=== PATIENT | male | born 1960 | race African-American/Black ===

== ENCOUNTER 2019-05-16 09:42 | Outpatient (CLI) | payer OTHER ==
--- NOTE | 2019-05-16 10:12 | RAD ---
EXAM: Two views chest PROVIDED CLINICAL HISTORY: Cough for 5 months. COMPARISON: 06/18/2016 FINDINGS: Cardiac silhouette and pulmonary vasculature are within normal limits. The lungs are clear. The osse ous structures have a normal appearance. IMPRESSION: No acute cardiopulmonary process.
--- NOTE | 2019-05-16 10:21 | ULT ---
ABDOMINAL ULTRASOUND HISTORY: Immunocompromised. FINDINGS: Liver: Within normal limits. Gallbladder: No gallbladder calculi are visualized. There is no gallbladder wall thickening or perich olecystic fluid. Common duct: Common duct is normal in caliber measuring 20 mm in diameter. Pancreas: The limited visualized pancreas demonstrates a normal sonographic appearance. IVC: Limited visualized IVC has a normal sonographic appearance. Aorta: Mild atherosclerotic plaque. Spleen: Nonspecific slight heterogeneity. Kidneys: Kidneys demonstrate a normal sonographic appearance bilaterally with the right kidney measur ing 10.8 cm in length, and the left kidney measures 11.5 cm in length. IMPRESSION: 1. No gallbladder calculi are seen, and the common duct is normal in caliber. 2. Slight nonspecific heterogeneity of the spleen.
== END 2019-05-16 09:43 | disposition home or self-care (01) ==
LOC: SCSULT 09:42
PROVIDERS: ATTEND Internal Medicine Infectious Disease
DX: B20 Human immunodeficiency virus [HIV] disease (principal); M89.40 Other hypertrophic osteoarthropathy, unspecified site
CPT/HCPCS: 71046; 93975

== ENCOUNTER 2021-07-03 02:04 | Inpatient (IN) | payer OTHER ==
[2021-07-03 03:31] LABS: #Lymphocytes 1.3 thou/uL (1.20-3.40); #Monocytes 0.2 thou/uL (0.11-0.59); #Neutrophils 1.1 thou/uL (1.40-6.50); %Basophils 1.5 % (0.0-1.0); %Eosinophils 1.7 % (0.0-10.0); %Lymphocytes 48.4 % (21.0-51.0); %Monocytes 8.6 % (0.0-10.0); %Neutrophils 39.8 % (42.0-75.0); Hemoglobin 13.7 g/dL (14.0-18.0); Mean Corpuscular HGB CONC 33.6 g/dL (32.0-36.0); Mean Corpuscular Hemoglobin 31.4 pg (27.0-31.0); Mean Corpuscular Volume 93.6 fL (78.0-98.0); Mean Platelet Volume 8.8 fL (7.4-10.4); Platelet Count 132 thou/uL (130-400); RBC Distribution Width 11.9 % (11.5-14.5); Red Blood Cell (RBC) Count 4.36 mill/uL (4.70-6.10); White Blood Cell (WBC) Count 2.7 thou/uL (4.8-10.8)
[2021-07-03 03:52] LABS: ALT (SGPT) 18 U/L (8-55); AST (SGOT) 24 U/L (5-34); Albumin 3.9 g/dL (3.5-5.0); Alkaline Phosphatase 75 U/L (40-110); Anion Gap 13 mmol/L (10-20); BUN (Urea Nitrogen) 15 mg/dL (8.4-25.7); Bilirubin, Total 0.3 mg/dL (0.2-1.2); Calc. Creatinine Clearance 0 mL/min (70-130); Calcium 9.2 mg/dL (7.8-10.44); Carbon Dioxide 20 mmol/L (22-29); Chloride 107 mmol/L (98-107); Globulin 4.2 g/dL (2.4-3.5); Glucose 90 mg/dL (70-105); Protein, Total 8.1 g/dL (6.0-8.3); Sodium 136 mmol/L (136-145)
[2021-07-03] MEDS ORDERED: cloNIDine 0.1 MG TAB ONE (03:58)
[2021-07-03 06:03] VITALS: BMI 20.4
[2021-07-03] MEDS ORDERED: Ondansetron PF 4 MG/2 ML Vial IVP PRN (08:12)
[2021-07-03] MEDS ORDERED: Acetaminophen 650 MG Suppository PR PRN (08:12)
[2021-07-03] MEDS ORDERED: Bisacodyl 5 MG TAB PO PRN (08:12)
[2021-07-03] MEDS ORDERED: Acetaminophen 325 MG TAB PO PRN (08:12)
[2021-07-03] MEDS ORDERED: hydrALAZINE 20 MG/ML VIAL SLOW IVP PRN (08:12)
[2021-07-03] MEDS ORDERED: Senokot S 8.6-50 MG TAB PO PRN (08:12)
[2021-07-03] MEDS ORDERED: Ondansetron ODT 4 MG TAB PO PRN (08:12)
[2021-07-03] MEDS ORDERED: Prevnar 13-Val Conj/PF 0.5 ML SYRINGE IM ONE (09:00)
[2021-07-03] MEDS ORDERED: Amlodipine 5 MG TAB PO SCH (09:00)
[2021-07-03] MEDS ORDERED: FLU VACC QS2021-22(6MOS UP)/PF 60 MCG/0.5 ML SYRINGE IM ONE (09:00)
[2021-07-03 15:52] LABS: Amphetamine Not Detected (NotDetected); Barbiturates Screen Not Detected (NotDetected); Benzodiazepine Screen Not Detected (NotDetected); Cocaine Metabolite Screen Not Detected (NotDetected); Methadone Not Detected (NotDetected); Methamphetamine Not Detected (NotDetected); Opiate Screen Not Detected (NotDetected); Oxycodone Screen Not Detected (NotDetected); Phencyclidine (PCP) Not Detected (NotDetected); THC/Cannabinoid Screen Detected (NotDetected); Tricyclic Screen Not Detected (NotDetected)
[2021-07-03] MEDS ORDERED: Aspirin 325 mg Enteric Coated Tablet PO SCH (16:45)
[2021-07-03 16:46] LABS: SARS-CoV-2 PCR by NAA DETECTED (NotDetected)
[2021-07-03] MEDS: Atorvastatin Calcium 40 MG TAB PO SCH (22:58)
[2021-07-04 05:53] LABS: #Eosinphils 0.1 thou/uL (0.0-0.7); #Lymphocytes 1.3 thou/uL (1.20-3.40); #Monocytes 0.2 thou/uL (0.11-0.59); %Basophils 0.4 % (0.0-1.0); %Eosinophils 2.8 % (0.0-10.0); %Lymphocytes 48.7 % (21.0-51.0); %Monocytes 9.3 % (0.0-10.0); %Neutrophils 38.8 % (42.0-75.0); Hemoglobin 13.7 g/dL (14.0-18.0); Mean Corpuscular HGB CONC 33.7 g/dL (32.0-36.0); Mean Corpuscular Hemoglobin 31.5 pg (27.0-31.0); Mean Corpuscular Volume 93.5 fL (78.0-98.0); Platelet Count 130 thou/uL (130-400); RBC Distribution Width 11.8 % (11.5-14.5); Red Blood Cell (RBC) Count 4.34 mill/uL (4.70-6.10); White Blood Cell (WBC) Count 2.6 thou/uL (4.8-10.8)
[2021-07-04 06:10] LABS: Anion Gap 14 mmol/L (10-20); BUN (Urea Nitrogen) 10 mg/dL (8.4-25.7); Calc. Creatinine Clearance 65 mL/min (70-130); Calcium 9.1 mg/dL (7.8-10.44); Carbon Dioxide 19 mmol/L (22-29); Cardiac Risk 4.7 (Less than 4.5); Chloride 106 mmol/L (98-107); Cholesterol 184 mg/dl (< 200 Desired); Glucose 99 mg/dL (70-105); HDL Cholesterol 39 mg/dL (>60 Neg Risk); LDL Cholesterol, Calculated 123 mg/dL; Potassium 3.9 mmol/L (3.5-5.1); Sodium 135 mmol/L (136-145); Triglycerides 110 mg/dL (Less than 150)
[2021-07-04] MEDS: Aspirin 81 mg Enteric Coated Tablet PO SCH (08:03)
[2021-07-04] MEDS: Atorvastatin Calcium 40 MG TAB PO SCH (20:15)
[2021-07-05 07:54] LABS: #Eosinphils 0.1 thou/uL (0.0-0.7); #Lymphocytes 1.3 thou/uL (1.20-3.40); #Monocytes 0.4 thou/uL (0.11-0.59); #Neutrophils 1.7 thou/uL (1.40-6.50); %Basophils 0.9 % (0.0-1.0); %Eosinophils 1.5 % (0.0-10.0); %Lymphocytes 37.4 % (21.0-51.0); %Monocytes 10.5 % (0.0-10.0); %Neutrophils 49.7 % (42.0-75.0); Hemoglobin 14.2 g/dL (14.0-18.0); Mean Corpuscular HGB CONC 32.8 g/dL (32.0-36.0); Mean Corpuscular Hemoglobin 30.7 pg (27.0-31.0); Mean Corpuscular Volume 93.7 fL (78.0-98.0); Mean Platelet Volume 8.8 fL (7.4-10.4); Platelet Count 143 thou/uL (130-400); RBC Distribution Width 11.8 % (11.5-14.5); Red Blood Cell (RBC) Count 4.64 mill/uL (4.70-6.10); White Blood Cell (WBC) Count 3.4 thou/uL (4.8-10.8)
[2021-07-05 08:08] LABS: Anion Gap 12 mmol/L (10-20); BUN (Urea Nitrogen) 10 mg/dL (8.4-25.7); Calc. Creatinine Clearance 61 mL/min (70-130); Calcium 9.4 mg/dL (7.8-10.44); Carbon Dioxide 21 mmol/L (22-29); Chloride 105 mmol/L (98-107); Glucose 93 mg/dL (70-105); Sodium 134 mmol/L (136-145)
[2021-07-05] MEDS: Aspirin 81 mg Enteric Coated Tablet PO SCH (08:39)
[2021-07-05] MEDS ORDERED: DOVATO PO SCH (09:00)
[2021-07-05] MEDS ORDERED: Amlodipine 5 MG TAB PO SCH (13:00)
[2021-07-05] MEDS: Atorvastatin Calcium 40 MG TAB PO SCH (20:09)
[2021-07-06 06:00] LABS: #Eosinphils 0.1 thou/uL (0.0-0.7); #Lymphocytes 1.4 thou/uL (1.20-3.40); #Monocytes 0.4 thou/uL (0.11-0.59); #Neutrophils 1.4 thou/uL (1.40-6.50); %Eosinophils 1.7 % (0.0-10.0); %Lymphocytes 43.3 % (21.0-51.0); %Monocytes 12.7 % (0.0-10.0); %Neutrophils 42.2 % (42.0-75.0); Hemoglobin 14.2 g/dL (14.0-18.0); Mean Corpuscular HGB CONC 33.7 g/dL (32.0-36.0); Mean Corpuscular Hemoglobin 31.6 pg (27.0-31.0); Mean Corpuscular Volume 93.9 fL (78.0-98.0); Mean Platelet Volume 8.5 fL (7.4-10.4); Platelet Count 136 thou/uL (130-400); RBC Distribution Width 11.8 % (11.5-14.5); White Blood Cell (WBC) Count 3.3 thou/uL (4.8-10.8)
[2021-07-06 06:20] LABS: Anion Gap 14 mmol/L (10-20); BUN (Urea Nitrogen) 12 mg/dL (8.4-25.7); Calc. Creatinine Clearance 56 mL/min (70-130); Calcium 9.2 mg/dL (7.8-10.44); Carbon Dioxide 21 mmol/L (22-29); Chloride 104 mmol/L (98-107); Glucose 99 mg/dL (70-105); Sodium 135 mmol/L (136-145)
[2021-07-06] MEDS: Aspirin 81 mg Enteric Coated Tablet PO SCH (08:19)
[2021-07-06] MEDS ORDERED: Amlodipine 5 MG TAB PO SCH (09:00)
[2021-07-06] MEDS: Atorvastatin Calcium 40 MG TAB PO SCH (21:08)
[2021-07-07 05:37] LABS: #Eosinphils 0.1 thou/uL (0.0-0.7); #Lymphocytes 1.2 thou/uL (1.20-3.40); #Monocytes 0.3 thou/uL (0.11-0.59); #Neutrophils 1.5 thou/uL (1.40-6.50); %Eosinophils 2.8 % (0.0-10.0); %Lymphocytes 38.6 % (21.0-51.0); %Monocytes 10.8 % (0.0-10.0); %Neutrophils 47.8 % (42.0-75.0); Hemoglobin 14.4 g/dL (14.0-18.0); Mean Corpuscular HGB CONC 33.4 g/dL (32.0-36.0); Mean Corpuscular Hemoglobin 31.2 pg (27.0-31.0); Mean Corpuscular Volume 93.4 fL (78.0-98.0); Mean Platelet Volume 8.5 fL (7.4-10.4); Platelet Count 149 thou/uL (130-400); RBC Distribution Width 11.7 % (11.5-14.5); Red Blood Cell (RBC) Count 4.61 mill/uL (4.70-6.10); White Blood Cell (WBC) Count 3.2 thou/uL (4.8-10.8)
[2021-07-07 06:02] LABS: Anion Gap 14 mmol/L (10-20); BUN (Urea Nitrogen) 14 mg/dL (8.4-25.7); Calc. Creatinine Clearance 61 mL/min (70-130); Calcium 9.1 mg/dL (7.8-10.44); Carbon Dioxide 19 mmol/L (22-29); Chloride 107 mmol/L (98-107); Glucose 93 mg/dL (70-105); Sodium 136 mmol/L (136-145)
[2021-07-07] MEDS: Aspirin 81 mg Enteric Coated Tablet PO SCH (08:13)
[2021-07-07] MEDS: Amlodipine 10 MG TAB PO SCH (08:13)
[2021-07-07] MEDS ORDERED: Docusate 100 MG CAP PO PRN (11:00)
[2021-07-07] MEDS: Atorvastatin Calcium 40 MG TAB PO SCH (20:24)
[2021-07-07] MEDS: Docusate 100 MG CAP PO SCH (20:24)
[2021-07-08 06:17] LABS: #Eosinphils 0.2 thou/uL (0.0-0.7); #Lymphocytes 1.3 thou/uL (1.20-3.40); #Monocytes 0.3 thou/uL (0.11-0.59); #Neutrophils 1.3 thou/uL (1.40-6.50); %Basophils 0.3 % (0.0-1.0); %Eosinophils 5.2 % (0.0-10.0); %Monocytes 8.2 % (0.0-10.0); %Neutrophils 43.3 % (42.0-75.0); Hemoglobin 14.3 g/dL (14.0-18.0); Mean Corpuscular HGB CONC 33.4 g/dL (32.0-36.0); Mean Corpuscular Hemoglobin 31.2 pg (27.0-31.0); Mean Corpuscular Volume 93.4 fL (78.0-98.0); Mean Platelet Volume 8.7 fL (7.4-10.4); Platelet Count 157 thou/uL (130-400); RBC Distribution Width 11.7 % (11.5-14.5); Red Blood Cell (RBC) Count 4.57 mill/uL (4.70-6.10)
[2021-07-08 06:42] LABS: Anion Gap 13 mmol/L (10-20); BUN (Urea Nitrogen) 11 mg/dL (8.4-25.7); Calc. Creatinine Clearance 65 mL/min (70-130); Calcium 9.5 mg/dL (7.8-10.44); Carbon Dioxide 19 mmol/L (22-29); Chloride 107 mmol/L (98-107); Glucose 90 mg/dL (70-105); Sodium 135 mmol/L (136-145)
[2021-07-08] MEDS: Amlodipine 10 MG TAB PO SCH (08:24)
[2021-07-08] MEDS: Docusate 100 MG CAP PO SCH ×2 (08:24→22:01)
[2021-07-08] MEDS: Aspirin 81 mg Enteric Coated Tablet PO SCH (08:24)
[2021-07-08] MEDS: Lisinopril/Hydrochlorothiazide 10 mg/12.5 mg Tablet PO SCH (18:48)
[2021-07-08] MEDS: Atorvastatin Calcium 40 MG TAB PO SCH (22:05)
[2021-07-09] MEDS: Amlodipine 10 MG TAB PO SCH (08:31)
[2021-07-09] MEDS: Aspirin 81 mg Enteric Coated Tablet PO SCH (08:33)
[2021-07-09] MEDS: Lisinopril/Hydrochlorothiazide 10 mg/12.5 mg Tablet PO SCH (17:15)
[2021-07-09] MEDS: Atorvastatin Calcium 40 MG TAB PO SCH (20:46)
[2021-07-10] MEDS: Amlodipine 10 MG TAB PO SCH (09:00)
[2021-07-10] MEDS: Aspirin 81 mg Enteric Coated Tablet PO SCH (09:00)
[2021-07-10] MEDS: Lisinopril/Hydrochlorothiazide 10 mg/12.5 mg Tablet PO SCH (18:17)
[2021-07-10] MEDS: Atorvastatin Calcium 40 MG TAB PO SCH (20:20)
[2021-07-11] MEDS: Aspirin 81 mg Enteric Coated Tablet PO SCH (08:56)
[2021-07-11] MEDS: Amlodipine 10 MG TAB PO SCH (08:59)
[2021-07-11] MEDS: Lisinopril/Hydrochlorothiazide 10 mg/12.5 mg Tablet PO SCH (18:31)
[2021-07-11] MEDS: Atorvastatin Calcium 40 MG TAB PO SCH (20:20)
[2021-07-12] MEDS ORDERED: Enoxaparin Sodium 40 MG/0.4 ML SYRINGE SC SCH (09:00)
[2021-07-12] MEDS: Amlodipine 10 MG TAB PO SCH (09:51)
[2021-07-12] MEDS: Aspirin 81 mg Enteric Coated Tablet PO SCH (09:51)
[2021-07-12 15:48] VITALS: BP 129/69; TEMP 98.9
== END 2021-07-12 17:12 | DRG 64 ==
LOC: ERS 02:04 → NEURO 04:15 → OBSVTOIN 16:43 → 2SW 23:45
PROVIDERS: ADMIT Internal Medicine; ATTEND Internal Medicine
PROC: 8E0ZXY6 Isolation (ICD-10-PCS; principal; 2021-07-03)
DX: I63.512 Cerebral infarction due to unspecified occlusion or stenosis of left middle cerebral artery (principal); U07.1 COVID-19; J12.82 Pneumonia due to coronavirus disease 2019; E78.5 Hyperlipidemia, unspecified; I10 Essential (primary) hypertension; Z21 Asymptomatic human immunodeficiency virus [HIV] infection status; R47.01 Aphasia; F32.A Depression, unspecified; F17.210 Nicotine dependence, cigarettes, uncomplicated; F14.10 Cocaine abuse, uncomplicated; K59.00 Constipation, unspecified; R00.1 Bradycardia, unspecified; J45.20 Mild intermittent asthma, uncomplicated; Z79.82 Long term (current) use of aspirin; Z79.899 Other long term (current) drug therapy; Z91.14 Patient's other noncompliance with medication regimen; Z71.6 Tobacco abuse counseling; Z71.51 Drug abuse counseling and surveillance of drug abuser
CPT/HCPCS: 36415; 70450; 70551; 71045; 80048; 80053; 80061; 80306; 84443; 84484; 85025; 90471; 90686; 93005; 93306; 93880; G0008; G0378; J1650; U0003; U0005

== ENCOUNTER 2021-07-21 15:03 | Inpatient (IN) | payer OTHER ==
[2021-07-21 16:40] LABS: #Lymphocytes 0.9 thou/uL (1.20-3.40); #Monocytes 0.5 thou/uL (0.11-0.59); #Neutrophils 3.4 thou/uL (1.40-6.50); %Basophils 0.3 % (0.0-1.0); %Eosinophils 0.5 % (0.0-10.0); %Lymphocytes 19.3 % (21.0-51.0); %Monocytes 10.5 % (0.0-10.0); %Neutrophils 69.4 % (42.0-75.0); Hemoglobin 12.3 g/dL (14.0-18.0); Mean Corpuscular HGB CONC 34.1 g/dL (32.0-36.0); Mean Corpuscular Hemoglobin 31.5 pg (27.0-31.0); Mean Corpuscular Volume 92.6 fL (78.0-98.0); Mean Platelet Volume 9.3 fL (7.4-10.4); Platelet Count 159 thou/uL (130-400); RBC Distribution Width 11.1 % (11.5-14.5); Red Blood Cell (RBC) Count 3.91 mill/uL (4.70-6.10); White Blood Cell (WBC) Count 4.9 thou/uL (4.8-10.8)
[2021-07-21 16:55] LABS: INR-International Normal Ratio 1.1; Prothrombin Time 14.4 sec (12.0-14.7)
[2021-07-21 16:56] LABS: PTT 47.4 sec (22.9-36.1)
[2021-07-21 17:00] LABS: ALT (SGPT) 46 U/L (8-55); AST (SGOT) 48 U/L (5-34); Albumin 3.7 g/dL (3.5-5.0); Alkaline Phosphatase 67 U/L (40-110); Anion Gap 15 mmol/L (10-20); BUN (Urea Nitrogen) 39 mg/dL (8.4-25.7); Bilirubin, Total 0.4 mg/dL (0.2-1.2); Calc. Creatinine Clearance 0 mL/min (70-130); Calcium 8.7 mg/dL (7.8-10.44); Carbon Dioxide 20 mmol/L (22-29); Chloride 94 mmol/L (98-107); Globulin 3.6 g/dL (2.4-3.5); Glucose 108 mg/dL (70-105); Potassium 4.3 mmol/L (3.5-5.1); Protein, Total 7.3 g/dL (6.0-8.3); Sodium 125 mmol/L (136-145)
[2021-07-21] MEDS ORDERED: Aspirin 300 MG Suppository ONE (17:16)
[2021-07-21 19:03] LABS: Troponin I 0.029 ng/mL (< 0.028)
[2021-07-21] MEDS ORDERED: Ondansetron ODT 4 MG TAB PO PRN (19:15)
[2021-07-21] MEDS ORDERED: Acetaminophen 650 MG Suppository PR PRN (19:15)
[2021-07-21] MEDS ORDERED: Ondansetron PF 4 MG/2 ML Vial IVP PRN (19:15)
[2021-07-21] MEDS ORDERED: hydrALAZINE 20 MG/ML VIAL SLOW IVP PRN (19:33)
[2021-07-21] MEDS: Sodium Chloride 0.9% 1,000 ML IV SCH (21:20)
[2021-07-21 22:31] LABS: Magnesium 2.5 mg/dL (1.6-2.6)
[2021-07-21 22:36] LABS: Troponin I 0.026 ng/mL (< 0.028)
[2021-07-21 22:48] LABS: Bacteria/HPF None Seen HPF (None Seen); Bilirubin Negative (Negative); Blood, Urine Negative (Negative); Clarity Clear (Clear); Glucose, Urine (Dipstick) Normal (Negative); Ketone, Urine Negative (Negative); Leukocyte Negative Leu/uL (Negative); Nitrite Negative (Negative); Protein, Urine (Dipstick) Negative (Neg-Trace); RBC/HPF 0-3 HPF (0-3); Squamous Epithelial None Seen HPF (0-3); Urobilinogen Normal mg/dL (Less than 2); WBC/HPF 0-3 HPF (0-3); pH, Urine 5.5 (5.0-9.0)
[2021-07-21 22:54] LABS: Amphetamine Not Detected (NotDetected); Barbiturates Screen Not Detected (NotDetected); Benzodiazepine Screen Not Detected (NotDetected); Cocaine Metabolite Screen Not Detected (NotDetected); Methadone Not Detected (NotDetected); Methamphetamine Not Detected (NotDetected); Opiate Screen Not Detected (NotDetected); Oxycodone Screen Not Detected (NotDetected); Phencyclidine (PCP) Not Detected (NotDetected); THC/Cannabinoid Screen Detected (NotDetected); Tricyclic Screen Not Detected (NotDetected)
[2021-07-22 04:57] LABS: #Eosinphils 0.1 thou/uL (0.0-0.7); #Lymphocytes 0.9 thou/uL (1.20-3.40); #Monocytes 0.5 thou/uL (0.11-0.59); %Basophils 0.1 % (0.0-1.0); %Eosinophils 1.6 % (0.0-10.0); %Monocytes 13.6 % (0.0-10.0); %Neutrophils 58.8 % (42.0-75.0); Hemoglobin 11.9 g/dL (14.0-18.0); Mean Corpuscular HGB CONC 33.2 g/dL (32.0-36.0); Mean Corpuscular Hemoglobin 30.9 pg (27.0-31.0); Mean Corpuscular Volume 92.9 fL (78.0-98.0); Platelet Count 152 thou/uL (130-400); RBC Distribution Width 11.1 % (11.5-14.5); Red Blood Cell (RBC) Count 3.86 mill/uL (4.70-6.10); White Blood Cell (WBC) Count 3.5 thou/uL (4.8-10.8)
[2021-07-22 05:23] LABS: Anion Gap 12 mmol/L (10-20); BUN (Urea Nitrogen) 32 mg/dL (8.4-25.7); Calc. Creatinine Clearance 52 mL/min (70-130); Calcium 9.2 mg/dL (7.8-10.44); Carbon Dioxide 20 mmol/L (22-29); Chloride 103 mmol/L (98-107); Glucose 94 mg/dL (70-105); Potassium 4.2 mmol/L (3.5-5.1); Sodium 131 mmol/L (136-145)
[2021-07-22] MEDS ORDERED: Aspirin 300 MG Suppository PR SCH (09:00)
[2021-07-22] MEDS ORDERED: Prevnar 13-Val Conj/PF 0.5 ML SYRINGE IM ONE (09:00)
[2021-07-22] MEDS ORDERED: FLU VACC QS2021-22(6MOS UP)/PF 60 MCG/0.5 ML SYRINGE IM ONE (09:00)
[2021-07-22 10:51] LABS: SARS-CoV-2 PCR by NAA Not Detected (NotDetected)
[2021-07-22] MEDS ORDERED: hydrALAZINE 20 MG/ML VIAL SLOW IVP PRN (12:37)
[2021-07-22] MEDS: Clopidogrel Bisulfate 75 MG TAB PO SCH (13:40)
[2021-07-22] MEDS ORDERED: Aspirin 81 mg Enteric Coated Tablet PO SCH (14:00)
[2021-07-22 15:42] LABS: Anion Gap 14 mmol/L (10-20); BUN (Urea Nitrogen) 22 mg/dL (8.4-25.7); Calc. Creatinine Clearance 60 mL/min (70-130); Calcium 9.3 mg/dL (7.8-10.44); Carbon Dioxide 18 mmol/L (22-29); Chloride 103 mmol/L (98-107); Glucose 127 mg/dL (70-105); Potassium 4.3 mmol/L (3.5-5.1); Sodium 131 mmol/L (136-145)
[2021-07-22] MEDS: Atorvastatin Calcium 40 MG TAB PO SCH (20:15)
[2021-07-22] MEDS ORDERED: Pantoprazole 40 MG VIAL IVP SCH (21:00)
[2021-07-23 04:14] LABS: Creatinine, Urine 123.52 mg/dL (63-166)
[2021-07-23] MEDS ORDERED: Acetaminophen 325 MG TAB PO PRN (05:17)
[2021-07-23 06:24] LABS: #Eosinphils 0.1 thou/uL (0.0-0.7); #Lymphocytes 1.2 thou/uL (1.20-3.40); #Monocytes 0.6 thou/uL (0.11-0.59); #Neutrophils 2.4 thou/uL (1.40-6.50); %Basophils 0.6 % (0.0-1.0); %Eosinophils 2.1 % (0.0-10.0); %Lymphocytes 27.7 % (21.0-51.0); %Monocytes 13.7 % (0.0-10.0); Hemoglobin 12.2 g/dL (14.0-18.0); Mean Corpuscular HGB CONC 34.8 g/dL (32.0-36.0); Mean Corpuscular Hemoglobin 32.5 pg (27.0-31.0); Mean Corpuscular Volume 93.4 fL (78.0-98.0); Mean Platelet Volume 8.9 fL (7.4-10.4); Platelet Count 141 thou/uL (130-400); RBC Distribution Width 11.1 % (11.5-14.5); Red Blood Cell (RBC) Count 3.74 mill/uL (4.70-6.10); White Blood Cell (WBC) Count 4.3 thou/uL (4.8-10.8)
[2021-07-23 06:31] LABS: Anion Gap 14 mmol/L (10-20); BUN (Urea Nitrogen) 18 mg/dL (8.4-25.7); Calc. Creatinine Clearance 60 mL/min (70-130); Carbon Dioxide 20 mmol/L (22-29); Chloride 102 mmol/L (98-107); Glucose 90 mg/dL (70-105); Potassium 4.5 mmol/L (3.5-5.1); Sodium 131 mmol/L (136-145)
[2021-07-23] MEDS: Sodium Chloride 0.9% 1,000 ML IV SCH (08:13)
[2021-07-23] MEDS ORDERED: LAMIVUDINE PO SCH (09:00)
[2021-07-23] MEDS ORDERED: DOLUTEGRAVIR SODIUM PO SCH (09:00)
[2021-07-23] MEDS: Clopidogrel Bisulfate 75 MG TAB PO SCH (09:17)
[2021-07-23] MEDS: Aspirin 81 mg Enteric Coated Tablet PO SCH (09:17)
[2021-07-23] MEDS: Atorvastatin Calcium 40 MG TAB PO SCH (20:01)
[2021-07-23] MEDS: Raltegravir Potassium 400 MG TAB PO SCH (20:01)
[2021-07-24 05:17] LABS: #Eosinphils 0.1 thou/uL (0.0-0.7); #Lymphocytes 1.2 thou/uL (1.20-3.40); #Monocytes 0.5 thou/uL (0.11-0.59); #Neutrophils 2.3 thou/uL (1.40-6.50); %Basophils 0.5 % (0.0-1.0); %Eosinophils 1.6 % (0.0-10.0); %Lymphocytes 28.4 % (21.0-51.0); %Monocytes 12.8 % (0.0-10.0); %Neutrophils 56.7 % (42.0-75.0); Hemoglobin 11.7 g/dL (14.0-18.0); Mean Corpuscular HGB CONC 33.7 g/dL (32.0-36.0); Mean Corpuscular Volume 92.1 fL (78.0-98.0); Mean Platelet Volume 8.5 fL (7.4-10.4); Platelet Count 139 thou/uL (130-400); Red Blood Cell (RBC) Count 3.77 mill/uL (4.70-6.10); White Blood Cell (WBC) Count 4.1 thou/uL (4.8-10.8)
[2021-07-24 05:39] LABS: Anion Gap 14 mmol/L (10-20); BUN (Urea Nitrogen) 16 mg/dL (8.4-25.7); Calc. Creatinine Clearance 56 mL/min (70-130); Calcium 9.1 mg/dL (7.8-10.44); Carbon Dioxide 18 mmol/L (22-29); Chloride 100 mmol/L (98-107); Glucose 89 mg/dL (70-105); Potassium 4.1 mmol/L (3.5-5.1); Sodium 128 mmol/L (136-145)
[2021-07-24] MEDS: Clopidogrel Bisulfate 75 MG TAB PO SCH (09:20)
[2021-07-24] MEDS: Raltegravir Potassium 400 MG TAB PO SCH ×2 (09:21→20:06)
[2021-07-24] MEDS: Aspirin 81 mg Enteric Coated Tablet PO SCH (09:21)
[2021-07-24] MEDS: Emtricitabine/Tenofovir 200-300 MG TAB PO SCH (09:21)
[2021-07-24 10:41] VITALS: BMI 19.5
[2021-07-24] MEDS ORDERED: Tolvaptan 15 MG TAB PO SCH (11:00)
[2021-07-24] MEDS ORDERED: TOLVAPTAN 30 MG TAB PO SCH (12:00)
[2021-07-24 18:24] LABS: Potassium 3.9 mmol/L (3.5-5.1)
[2021-07-24] MEDS: Atorvastatin Calcium 40 MG TAB PO SCH (20:06)
[2021-07-25 04:46] LABS: Anion Gap 14 mmol/L (10-20); BUN (Urea Nitrogen) 18 mg/dL (8.4-25.7); Calc. Creatinine Clearance 63 mL/min (70-130); Calcium 9.1 mg/dL (7.8-10.44); Carbon Dioxide 20 mmol/L (22-29); Chloride 104 mmol/L (98-107); Glucose 102 mg/dL (70-105); Potassium 4.1 mmol/L (3.5-5.1); Sodium 134 mmol/L (136-145)
[2021-07-25 08:45] VITALS: TEMP 97.8
[2021-07-25] MEDS: Aspirin 81 mg Enteric Coated Tablet PO SCH (09:46)
[2021-07-25] MEDS: Emtricitabine/Tenofovir 200-300 MG TAB PO SCH (09:46)
[2021-07-25] MEDS: Raltegravir Potassium 400 MG TAB PO SCH (09:46)
[2021-07-25] MEDS: Clopidogrel Bisulfate 75 MG TAB PO SCH (09:47)
[2021-07-25 11:56] VITALS: BP 118/60
== END 2021-07-25 13:37 | DRG 643 ==
LOC: ERS 15:03 → ERHOLD 18:03 → 2NO 22:06
PROVIDERS: ADMIT Internal Medicine; ATTEND Family Medicine
DX: E22.2 Syndrome of inappropriate secretion of antidiuretic hormone (principal); G93.41 Metabolic encephalopathy; N17.9 Acute kidney failure, unspecified; Z20.822 Contact with and (suspected) exposure to COVID-19; I10 Essential (primary) hypertension; R13.10 Dysphagia, unspecified; Z21 Asymptomatic human immunodeficiency virus [HIV] infection status; F17.210 Nicotine dependence, cigarettes, uncomplicated; F14.10 Cocaine abuse, uncomplicated; E78.5 Hyperlipidemia, unspecified; G93.89 Other specified disorders of brain; Z91.14 Patient's other noncompliance with medication regimen; I69.391 Dysphagia following cerebral infarction; I69.320 Aphasia following cerebral infarction; Z79.82 Long term (current) use of aspirin; Z79.899 Other long term (current) drug therapy
CPT/HCPCS: 36415; 70450; 70496; 70498; 70551; 71045; 80048; 80053; 80306; 81001; 82533; 82570; 83735; 83930; 83935; 84300; 84443; 84484; 85025; 85610; 85730; 93005; 95712; 95819; 95957; J7050; U0003; U0005

== ENCOUNTER 2021-09-25 12:51 | Outpatient (CLI) | payer OTHER ==
[2021-09-25 22:16] LABS: SARS-CoV-2 PCR by NAA Not Detected (NotDetected)
== END 2021-09-25 12:52 | disposition home or self-care (01) ==
LOC: LABBT 12:51
PROVIDERS: ATTEND Family Medicine
DX: Z20.822 Contact with and (suspected) exposure to COVID-19 (principal)
CPT/HCPCS: U0003; U0005